=== PATIENT | female | born 1970 | race African-American/Black ===

== ENCOUNTER 2020-08-19 07:41 | Emergency (ER) | payer SELFPAY ==
[~2020-08-19] VITALS: Ht 149.9 cm; Wt 77.1 kg
[2020-08-19 07:58] VITALS: BP 132/72
== END 2020-08-19 08:23 | disposition home or self-care (01) ==
LOC: ER 07:50
DX: J40 Bronchitis, not specified as acute or chronic (principal); Z88.8 Allergy status to other drugs, medicaments and biological substances